=== PATIENT | female | born 1955 | race Caucasian/White ===

== ENCOUNTER → 2016-10-03 15:01 | Outpatient (CLI) | payer MEDICARE, MEDICAID ==
[2014-01-21 07:14] VITALS: BMI 35.1
[~2016-10-03 15:01] MED LIST: MAG-OX 400 MG400 MG PO; MOBIC7.5 MG PO; NEURONTIN800 MG PO; NORCO 10/325 TA1 TA1 PO; NORCO 5/325 TAB1 TA1 PO; ULTRAM50 MG PO; ZANAFLEX4 MG PO
== END | disposition home or self-care (01) ==
LOC: D.CT 15:00
DX: M43.17 Spondylolisthesis, lumbosacral region (principal)

== ENCOUNTER → 2017-05-22 17:09 | Outpatient (CLI) | payer MEDICARE, MEDICAID ==
[2014-01-21 07:14] VITALS: BMI 35.1
== END | disposition home or self-care (01) ==
LOC: D.MAMMO 14:00
DX: N63 Unspecified lump in breast (principal)

== ENCOUNTER → 2017-11-06 17:50 | Outpatient (CLI) | payer MEDICARE, MEDICAID ==
[2014-01-21 07:14] VITALS: BMI 35.1
== END | disposition home or self-care (01) ==
LOC: D.MAMMO 09-25 13:15
DX: Z12.31 Encounter for screening mammogram for malignant neoplasm of breast (principal)

== ENCOUNTER → 2018-10-26 12:46 | Outpatient (CLI) | payer MEDICARE, MEDICAID ==
[2014-01-21 07:14] VITALS: BMI 35.1
== END | disposition home or self-care (01) ==
LOC: D.MRI 10-19 10:00
DX: M54.16 Radiculopathy, lumbar region (principal); M54.2 Cervicalgia

== ENCOUNTER → 2018-12-15 09:26 | Outpatient (CLI) | payer MEDICARE, MEDICAID ==
[2014-01-21 07:14] VITALS: BMI 35.1
== END | disposition home or self-care (01) ==
LOC: D.US 09:26 → D.CT 15:00
PROVIDERS: ATTEND Family Medicine
DX: R10.11 Right upper quadrant pain (principal)

== ENCOUNTER → 2018-12-23 14:13 | Outpatient (CLI) | payer MEDICARE, MEDICAID ==
[2014-01-21 07:14] VITALS: BMI 35.1
== END | disposition home or self-care (01) ==
LOC: D.US 14:13 → D.MRI 15:00
PROVIDERS: ATTEND Orthopaedic Surgery
DX: E04.1 Nontoxic single thyroid nodule (principal)

== ENCOUNTER 2019-01-07 06:50 | Day surgery (SDC) | payer MEDICARE, MEDICAID ==
[2019-01-05 11:59] LABS: HEMATOCRIT 41.1 % (36.0-48.0); HEMOGLOBIN 13.6 g/dL (12-16); MCH 29.6 pg (26.0-34.0); MCHC 33.1 g/dL (31.0-37.0); MCV 89.3 fL (80.0-100.0); MEAN PLATELET VOLUME 9.4 fL (7.4-10.4); RBC 4.6 10x6/uL (4.00-5.40); RDW 13.1 % (11.5-14.5); WBC 5.5 10x3/uL (4.8-10.8)
[~2019-01-07] VITALS: Ht 160 cm; Wt 81.2 kg
[~2019-01-07 06:50] MED LIST changes: +NEURONTIN600 MG PO; -NEURONTIN800 MG PO; +OXYCONTIN10 MG PO
[2019-01-07 07:22] VITALS: BP 111/73; Ht 160 cm; Wt 81.2 kg
[2019-01-07] MEDS ORDERED: HYDROCODON-ACE1 EA10 PO (09:31)
--- NOTE | 2019-01-14 11:33 | OP ---
PATIENT NAME: JORDAN GAN MEDICAL RECORD: [id number] :59 LOCATION:[facility] ADMISSION DATE: SURGEON: CHLOE LOTT MD DATE OF OPERATION: 01/07/2019 PREOPERATIVE DIAGNOSIS: Impingement syndrome with acromioclavicular arthritis. POSTOPERATIVE DIAGNOSES: Impingement syndrome with acromioclavicular arthritis plus severe biceps tendinitis. PROCEDURES: 1. Arthroscopic biceps tenotomy of the left shoulder. 2. Arthroscopic distal clavicle excision of the left shoulder done through separate incision - 1 cm. 3. Arthroscopic subacromial decompression, acromioplasty, and bursectomy. SURGEON: Chloe Lott MD ANESTHESIA: General. INTRAOPERATIVE COMPLICATIONS: None. SUMMARY OF PATHOLOGIC FINDINGS: Consistent with the preoperative diagnosis, the patient had severe impingement, acromioclavicular arthritis, excoriation of the coracoacromial ligament as well as severe biceps tendinitis with tearing. OPERATIVE SUMMARY IN DETAIL: After obtaining appropriate preoperative orthopedic surgery consent as well as anesthetic consultation, evaluation, and clearance, the patient was brought to the operating room and placed on the operating table in supine position. After general laryngeal mask airway was administered, the patient was placed in right lateral decubitus position. All pressure points were well padded to include down leg peroneal pad as well as axillary roll. The patient was held firmly to the operating table using the vacuum pack suction system. The patient's left upper extremity and shoulder were then prepped and draped in routine sterile fashion. The arm was held in the Arthrex traction boom at 30 degrees of forward flexion, 30 degrees of abduction, 10 pounds of traction laterally. Arthroscopy was established in the glenohumeral joint from the posterior portal. Diagnostic arthroscopy showed extreme biceps tendinitis, surface tissue ablation system was utilized tenotomized biceps tendon the bicipital labral junction. Attention was then turned to the subacromial space. While on subacromial space, [place] tissue ablation system was used to denude the undersurface of the acromion of all soft tissue elements and release the coracoacromial ligament. A 5-0 barrel bur was used to perform acromioplasty at the level of acromioclavicular joint. Having completed this, attention was then turned to the distal clavicle. Through a separate arthroscopic portal anteriorly under direct arthroscopic visualization, distal clavicle was excised for 1 cm. Lastly, all subacromial bursa was taken out anterior, posterior, lateral, as well as superior. Rotator cuff was evaluated and found to be with only minimal attritional changes. Having completed this, arthroscopy portals were closed in routine interrupted fashion using 4-0 Prolene. Sterile dressings were applied. The patient was awakened and taken to the recovery room in stable condition. All final needle and sponge counts were correct. TRANSINT:[id number] Voice Confirmation ID: [id number] DOCUMENT ID: [id number] OPERATIVE REPORT [id number] JORDAN GAN MD, CHLOE PRETTY at 1133 CC: [id number] DICTATION DATE: 01/13/19 173 [facility]: 01/14/19 0524 [facility] 01/07/19 [id number] [place] [address]
== END 2019-01-07 12:20 | disposition home or self-care (01) ==
LOC: D.OPS 06:50 → D.PAN 12:00 → D.OPS 12:20
PROVIDERS: Anesthesiology; ATTEND Orthopaedic Surgery
DX: M75.42 Impingement syndrome of left shoulder (principal); M13.812 Other specified arthritis, left shoulder; M75.22 Bicipital tendinitis, left shoulder; Z01.812 Encounter for preprocedural laboratory examination

== ENCOUNTER → 2019-03-03 10:35 | Outpatient (CLI) | payer MEDICARE, MEDICAID ==
[2019-01-07 07:22] VITALS: BMI 31.7
[~2019-03-03 10:35] MED LIST changes: +HYDROCODON-ACE1 EA10 PO
== END | disposition home or self-care (01) ==
LOC: D.MRI 10:35
PROVIDERS: ATTEND Orthopaedic Surgery
DX: G89.18 Other acute postprocedural pain (principal)

== ENCOUNTER 2019-07-06 08:00 | Outpatient (CLI) | payer MEDICARE, MEDICAID ==
[2019-01-07 07:22] VITALS: BMI 31.7
== END 2019-07-06 12:00 | disposition home or self-care (01) ==
LOC: D.MAMMO 08:00
PROVIDERS: ATTEND Family Medicine
DX: Z12.31 Encounter for screening mammogram for malignant neoplasm of breast (principal)

== ENCOUNTER 2019-08-26 19:01 | Emergency (ER) | payer MEDICARE, MEDICAID ==
[~2019-08-26] VITALS: Ht 160 cm; Wt 77.3 kg
[2019-08-26 19:16] VITALS: Ht 160 cm; Wt 77.3 kg
[2019-08-26] MEDS ORDERED: TIROSINT100 MCG PO (19:17)
[2019-08-26] MEDS ORDERED: CBD OILS (19:18)
[2019-08-26 19:47] LABS: BASOPHILS 0.4 % (0-2); EOSINOPHILS 3.1 % (0-7); HEMATOCRIT 42.2 % (36.0-48.0); HEMOGLOBIN 13.7 g/dL (12-16); IMMATURE GRANULOCYTES 0.2 % (0-5); LYMPHOCYTES 43.7 % (15-50); MCH 29.2 pg (26.0-34.0); MCHC 32.5 g/dL (31.0-37.0); MEAN PLATELET VOLUME 10.1 fL (7.4-10.4); MONOCYTES 9.5 % (2-11); NEUTROPHILS 43.1 % (40-80); PLATELET COUNT 145 10x3/uL (130-400); RBC 4.69 10x6/uL (4.00-5.40); RDW 14.1 % (11.5-14.5); WBC 5.5 10x3/uL (4.8-10.8)
[2019-08-26 19:56] LABS: INR 0.99 (0.85-1.17); PROTIME 12.6 SECONDS (11.6-15.0)
[2019-08-26 20:09] LABS: CALC OSMOLALITY 288 mosm/kg (275-300); CALCIUM 8.7 mg/dL (8.5-10.1); CARBON DIOXIDE 27.5 mmol/L (21.0-32.0); CHLORIDE - SERUM 107 mmol/L (98-107); CREATININE - SERUM 0.9 mg/dL (0.6-1.3); GLUCOSE 92 mg/dL (74-106); POTASSIUM - SERUM 4.1 mmol/L (3.5-5.1); SODIUM 144 mmol/L (136-145); UREA NITROGEN 18 mg/dL (7-18); eGFR NON AFRICAN AMERICAN 67 mL/min (90-120)
[2019-08-26 20:26] LABS: ALBUMIN 3.8 g/dL (3.4-5.0); ALKALINE PHOSPHATASE 76 U/L (46-116); ALT (SGPT) 25 U/L (10-68); BILIRUBIN - TOTAL 0.35 mg/dL (0.2-1.3); CKMB 2.1 U/L (0.0-3.6); CREATINE KINASE 114 UL (21-215); THYROID STIMULATING HORMONE 1.14 uIU/mL (0.36-3.74)
[2019-08-26 20:28] LABS: TROPONIN-I < 0.017 ng/mL (0.000-0.060)
[2019-08-26 21:15] VITALS: BP 140/85
== END 2019-08-26 21:15 | disposition home or self-care (01) ==
LOC: D.ER 19:01
PROVIDERS: Family Medicine
DX: R20.2 Paresthesia of skin (principal); T50.905A Adverse effect of unspecified drugs, medicaments and biological substances, initial encounter; J42 Unspecified chronic bronchitis; M54.9 Dorsalgia, unspecified; K21.9 Gastro-esophageal reflux disease without esophagitis

== ENCOUNTER → 2019-12-10 07:20 | Outpatient (CLI) | payer MEDICARE, MEDICAID ==
[2019-08-26 19:16] VITALS: BMI 30.1
[~2019-12-10 07:20] MED LIST changes: +CBD OILS; +TIROSINT100 MCG PO
== END | disposition home or self-care (01) ==
LOC: D.CT 07:20
PROVIDERS: ATTEND Family Medicine
DX: D35.02 Benign neoplasm of left adrenal gland (principal)

== ENCOUNTER → 2020-04-27 14:36 | Outpatient (CLI) | payer MEDICARE, MEDICAID ==
[2019-08-26 19:16] VITALS: BMI 30.1
== END | disposition home or self-care (01) ==
LOC: D.LABREF 14:36
PROVIDERS: ATTEND Surgery
DX: E27.8 Other specified disorders of adrenal gland (principal)

== ENCOUNTER → 2020-11-24 10:18 | Outpatient (CLI) | payer MEDICARE, MEDICAID ==
[2019-08-26 19:16] VITALS: BMI 30.1
== END | disposition home or self-care (01) ==
LOC: D.RT 10:18
PROVIDERS: ATTEND Internal Medicine Pulmonary Disease
DX: J44.9 Chronic obstructive pulmonary disease, unspecified (principal)

== ENCOUNTER 2021-03-23 13:00 | Outpatient (CLI) | payer MEDICARE, MEDICAID ==
[2019-08-26 19:16] VITALS: BMI 30.1
== END 2021-03-23 23:59 | disposition home or self-care (01) ==
LOC: D.MAMMO 13:00
PROVIDERS: ATTEND Family Medicine
DX: Z12.31 Encounter for screening mammogram for malignant neoplasm of breast (principal)